=== PATIENT | female | born 1960 | race Caucasian/White ===

== ENCOUNTER 2020-03-20 07:35 | Outpatient (CLI) | payer OTHER, SELFPAY ==
--- NOTE | ~2020-03-20 | CT_ITS ---
EXAMINATION: CT abdomen pelvis w con INDICATION: Diverticulitis of the large intestine without perforation TECHNIQUE: Computed tomographic images of the abdomen and pelvis were obtained after the administrati on of 100 cc of Omnipaque 350 intravenous contrast. The dose-length product (DLP) was 703.78 mGy-cm. Automated exposure control and iterative reconstruction technique were employed. COMPARISON: None available FINDINGS: The lung bases are clear. The heart size is normal. The liver, spleen, pancreas, gallbladde r, and adrenal glands are normal. Cysts of the kidneys measure up to 2.8 cm on the left. No pathologi bri enlarged abdominal or pelvic lymph nodes are identified. There is no free intraperitoneal gas o r evidence of bowel obstruction. The appendix is normal. Colonic diverticulosis is present without ev idence of diverticulitis. IMPRESSION: 1. Mild colonic diverticulosis without evidence of diverticulitis. Reviewed, dictated and finalized at location A.
[2020-03-20 08:29] LABS: Estimated Glomerular Filt Rate > 60
== END 2020-03-20 07:36 | disposition home or self-care (01) ==
LOC: ANHIMG 07:47
PROVIDERS: PCP Family Medicine; Visit Provider Family Medicine
DX: K57.30 Diverticulosis of large intestine without perforation or abscess without bleeding (principal)
CPT/HCPCS: 74177; Q9967

== ENCOUNTER 2020-03-31 11:15 | Outpatient (RCR) | payer OTHER, SELFPAY ==
--- NOTE | 2020-03-06 17:21 | PTOPEVAL ---
PHYSICAL THERAPY EVALUATION AND PLAN OF CARE Thank you for referring Kim Roberts to [facility].? The patient is scheduled to be seen for therapy? 1-2x/week for 4 weeks. Range in frequency due to patient schedule. Please review, sign, date and return this plan of care ZOEY. I agree with and certify that the following plan of care is medically necessary. Referring Physician Date Attending Provider: Sánchez Rowe MD Evaluation Diagnosis bilateral knee OA Subjective Information Kim is here today for Query Text:As Reported By Patient/ bilateral knee OA. She does Family have confirmed severe knee OA. She had an injection to the right knee on 02/20 with good pain relief. She held off on an injection to the left and it continues to hurt. Pain Assessment Timing of Pain Assessment Timing of Pain Assessment Assessment Pain Scale Pain Scale Used Numeric (1 - 10) Self Report Pain Assessment Left Knee(s) Reported Pain Level 6 Pain Description Aching,Pressure Pain Aggravating Factors Stair Climbing,Walking,Weight Bearing/Standing Pain Behaviors None Right Reported Pain Level 2 Pain Description Aching Pain Score Pain Score 2,6: Self Report Lower Extremity Range of Motion Knee Range of Motion Right Knee Flexion Range of Motion - Active 121 Left Knee Flexion Range of Motion - Active 128 Lower Extremity Muscle Strength Testing Hip Strength Bilateral Hip Flexion Strength 4- Good - Hip Extension Strength 3+ Fair + Hip Abduction Strength 3+ Fair + Knee Strength Bilateral Knee Flexion Strength 4 Good Knee Extension Strength 4 Good Knee Strength Comments fair quad contraction of right knee; good quad contraction of left Muscle Length Testing Muscle Length Testing Shreyas Test Shortened Muscles Short (R) Iliopsoas,Short (L) Iliopsoas,Short (R) Rectus Femoris,Short (L) Rectus Femoris Piriformis w/Hip Flexion >90 Degrees (L) Moderate Tightness,(R) Severe Tightness Left Hamstring Length -40 Query Text:(90 - 90 Position) Right Hamstring Length -40 Query Text:(90 - 90 Position) Balance Assessment Time Up Go (TUG) Timed Up and Go Test (TUG) (Seconds) 8 Assistive Devices None 5 Time Sit to Stand Time in Seconds 11.32 PT Clinical Summary Kim is a 59 yo female presenting to outpatient
--- NOTE | 2020-03-20 12:38 | PCPTNOTE ---
Pt No-showed and no-called this date. Continue per POC.
--- NOTE | 2020-03-28 15:56 | PCPTNOTE ---
Patient called & cancelled scheduled appointment this date due to being sick.
--- NOTE | 2020-04-03 09:23 | PCPTNOTE ---
Patient called & cancelled scheduled appointment this date. She rescheduled appointment for 04/09/2020.
--- NOTE | 2020-04-08 11:16 | PCPTNOTE ---
PHYSICAL THERAPY DISCHARGE NOTE Attending Provider: Sánchez Rowe MD Patient:Kim Fermin Work Date of :1960 Kim called to cancel her remaining appointment stating she is not coming back with no other reason provided. She was treated for bilateral knee pain. She will be discharged at this time. Patient?s initial visit was on 03/06/2020 and she had a total of 4 visits. The goals have been partially met. Thank you for referring this patient to [facility]. Please review, sign, date and return this discharge summary ZOEY. I have been updated about the patient's current status and I agree with discharge from the above service at this time. Referring Physician Date
== END 2020-04-09 11:02 | disposition home or self-care (01) ==
LOC: ANHPT 11:15
PROVIDERS: PCP Family Medicine; Visit Provider Orthopaedic Surgery
DX: M17.0 Bilateral primary osteoarthritis of knee (principal)
CPT/HCPCS: 97110; 97140; 97161

== ENCOUNTER → 2020-05-24 10:29 | Outpatient (CLI) | payer OTHER, SELFPAY ==
--- NOTE | ~2020-05-24 | MR_ITS ---
EXAMINATION: MR knee RT wo con DATE: 05/24/2020 11:25 INDICATION: Right knee pain. TECHNIQUE: Magnetic resonance imaging (MRI) of the right knee was performed without intravenous contr ast. Sequences included axial PD-weighted FS FSE, coronal PD-weighted FSE and PD-weighted FS FSE, sag ittal PD-weighted FSE, and sagittal T2-weighted FS FSE. COMPARISON: Right knee radiographs 02/21/2020 FINDINGS: Medial compartment: There is a complex tear of body and posterior horn of medial meniscus. There is deep partial thicknes s cartilage loss of tibial condyle involving the central articular surface with mild subchondral kathleen a-like marrow signal intensity. There is deep partial thickness cartilage loss of femoral condyle inv olving the central, medial, and posterior articular surface. Marginal osteophytes are noted. Lateral compartment: Lateral meniscus is normal. There is cartilage surface irregularity of tibial condyle and femoral con dyle. Patellofemoral compartment: There is deep partial thickness cartilage loss of patellar lateral facet with moderate subchondral ed mohit-like marrow signal intensity. There is shallow partial-thickness cartilage loss of patellar media l facet. There is partial-thickness cartilage loss of medial trochlea. Ligaments and tendons: The anterior and posterior cruciate ligaments are normal. Medial collateral ligament and lateral ari ateral ligament complex are normal. The patellar tendon is normal. Fluid: There is a moderate-sized knee joint effusion. There is a moderate-sized Caruso's cyst. IMPRESSION: 1. Moderate chondrosis of medial and patellofemoral compartments and mild chondrosis of lateral ky rtment. 2. Tear of medial meniscus. 3. Moderate-sized knee joint effusion. 4. Moderate-sized Caruso's cyst. Reviewed, dictated and finalized at location A. [employer] IMPRESSION: 1. Moderate chondrosis of medial and patellofemoral compartments and mild chond rosis of lateral compartment. 2. Tear of medial meniscus. 3. Moderate-sized knee joint effusion. 4. Moderate-sized Caruso's cyst.
== END ==
PROVIDERS: PCP Family Medicine; Visit Provider Orthopaedic Surgery
DX: M71.21 Synovial cyst of popliteal space [Baker], right knee (principal); M25.461 Effusion, right knee; S83.241A Other tear of medial meniscus, current injury, right knee, initial encounter; X58.XXXA Exposure to other specified factors, initial encounter
CPT/HCPCS: 73721

== ENCOUNTER 2020-06-16 08:51 | Emergency (ER) | payer OTHER, SELFPAY ==
[2020-06-16] VITALS (15 sets, daily range): BP systolic 120–143; BP diastolic 77–88; PULSE 78–100; RESP 15–20; TEMP 36.8; O2SAT 97–100
--- NOTE | ~2020-06-16 | CT_ITS ---
EXAMINATION: CTA chest PE protocol EXAM DATE: 06/16/2020 11:14 INDICATION: Mid chest pain. TECHNIQUE: Spiral CTA of the chest (pulmonary arteries) was performed with 100 cc Omnipaque 350 intr avenous contrast injection. Images were acquired during the pulmonary arterial phase. Coronal maxi mum intensity projection 3D-reconstructions were created by the technologist on dedicated workstation . Axial, coronal and sagittal reformatted images were reviewed. The dose-length product (DLP) for t his examination was 559.08 mGy-cm. The exposure was tailored according to patient size (auto mA exp osure control), and iterative reconstruction (ASIR) was used as additional dose reduction technique. There is no prior study for comparison. FINDINGS: Pulmonary arteries are well opacified and without intraluminal filling defects. No thora cic aortic dissection. Bilateral patchy peripheral faint groundglass opacities Appearance is typical of early stage COVID 19 pneumonia. Less likely acute possibilities include influenza, pulmonary sheri ma or hemorrhage. Some chronic processes that can have this appearance include cryptogenic organizing pneumonia, desquamative interstitial pneumonia, nonspecific interstitial pneumonia, drug toxicity, c onnective tissue disease. Please clinically correlate and test as appropriate. There are no pleural or pericardial effusions. Tracheobronchial tree is patent. There is no media stinal, hilar or axillary lymphadenopathy. There is no pneumothorax. Heart normal in size. No e vidence of coronary arterial calcification. Partially imaged left renal lesion statistically most li chanell cyst. Possible poorly calcified cholelithiasis. Gallbladder otherwise unremarkable. There is hep atic steatosis. There is thoracic spondylosis without osteoblastic or osteolytic lesions identified. IMPRESSION: 1. Faint bilateral peripheral airspace disease suspicious for COVID-19 pneumonia. 2. No pulmonary emboli suspected. 3. Hepatic steatosis. 4. Possible cholelithiasis. Reviewed, dictated and finalized at location A. MOTIVE OBSERVER IMPRESSION: 1. Faint bilateral peripheral airspace disease suspicious for COVID-19 pneumon ia. 2. No pulmonary emboli suspected. 3. Hepatic steatosis. 4. Possible cholelithiasis.
--- NOTE | ~2020-06-16 | XR_ITS ---
EXAMINATION: XR chest 2V EXAM DATE: 06/16/2020 09:27 INDICATION: Chest Pain, left side sharp pain, h/o hypertension. TECHNIQUE: Frontal and lateral projections of the chest obtained and reviewed. There is no prior joanna dy for comparison. FINDINGS: The lungs are clear. There are no pleural effusions. The cardiomediastinal silhouette is within normal limits. There is no pneumothorax suspected. Mild to moderate thoracolumbar scoliosis. IMPRESSION: No acute cardiopulmonary findings. Reviewed, dictated and finalized at location A. RAFT SYSTEMS REPAIRER
--- NOTE | 2020-06-16 08:59 | ECG_ITS ---
Measurements Intervals [place] Rate: 100 P: 43 ND: 139 QRS: 3 QRSD: 92 T: 48 QT: 352 QTc: 455 Interpretive Statements SINUS TACHYCARDIA VOLTAGE CRITERIA FOR LVH BASELINE ARTIFACT- I, II, III, AVR, AVL, AVF, V3-V6 BORDERLINE ECG Electronically Signed On 06-16-2020 9:10:36 TAIL WORKER by Dhaval Jha D.O.
[2020-06-16 09:20] LABS: Basophils Absolute Auto 0.1 K/mm3 (0.0-0.1); Basophils Percent Auto 0.7 % (0.2-1.2); Eosinophils Absolute Auto 0.1 K/mm3 (0-0.3); Eosinophils Percent Auto 0.5 % (0-4.4); Hematocrit 40.1 % (37.0-47.0); Hemoglobin 13.1 g/dL (12.0-15.0); Immature Granulocyte Absolute 0.03 K/mm3 (0.00-0.031); Immature Granulocyte Percent A 0.3 % (0-0.5); Lymphocytes Absolute Auto 3.45 K/mm3 (0.9-3.2); Lymphocytes Percent Auto 33.5 % (18.3-44.2); Mean Corpuscular HGB Conc 32.7 g/dl (32-36); Mean Corpuscular Hemoglobin 31.1 pg (26-34); Mean Corpuscular Volume 95.2 fl (80-100); Mean Platelet Volume 10.6 fl (7.4-10.4); Monocytes Absolute Auto 0.8 K/mm3 (0.1-0.6); Monocytes Percent Auto 7.7 % (2.6-8.5); Neutrophils Absolute Auto 5.9 K/mm3 (1.3-6.7); Neutrophils Percent Auto 57.3 % (45.5-73.1); Platelet Count Result 293 k/mm3 (150-375); Red Blood Count 4.21 M/mm3 (4.2-5.4); Red Cell Distribution Width 12.3 % (11.5-14.5); White Blood Count 10.3 K/mm3 (4.5-10.0)
[2020-06-16 09:27] LABS: INR 0.8
[2020-06-16 09:28] LABS: Partial Thromboplastin Time 22.1 SECONDS (22.3-36.8)
[2020-06-16 09:29] LABS: Anion Gap 9 mmol/L (8-16); Blood Urea Nitrogen 14 mg/dL (7-17); Calcium 9.8 mg/dL (8.4-10.2); Carbon Dioxide 27 mmol/L (22-30); Chloride 103 mmol/L (98-107); Estimated CRCL calculation 86 ml/min; Estimated Glomerular Filt Rate > 60; Glucose 110 mg/dL (65-105); Potassium 3.8 mmol/L (3.4-5.0); Sodium 139 mmol/L (137-145)
[2020-06-16 09:41] LABS: Troponin I < 0.012 ng/mL (0.000-0.034)
[2020-06-16 09:57] LABS: D Dimer 0.76 ug/mL (<0.48)
--- NOTE | 2020-06-16 10:04 | ED.GENADULT ---
HPI - General Adult General Chief complaint: Chest Pain Stated complaint: CP Time Seen by Provider: 06/16/20 09:12 Source: patient Mode of arrival: ambulatory Limitations: no limitations History of Present Illness HPI narrative: Patient is a 60-year-old female who presents with left substernal chest pain that began at 5 AM waking her from her sleep described as an intermittent stabbing pain which resolves last seconds patient was recently at the beginning in May diagnosed with COVID-19 notes that she has been released by the health department but continues to have cough and some slight shortness of breath. Patient denies fever vomiting diarrhea. Patient notes that the pain was radiating to the shoulder but otherwise currently is not on arrival is in the room not uncomfortable. Patient took an aspirin prior to arriving 325 mg. Related Data Home Medications Medication Instructions Recorded Confirmed cholecalciferol (vitamin D3) 1,000 unit PO ml 07/05/19 05/22/20 raloxifene 60 mg tablet 60 mg PO DAILY 07/05/19 05/22/20 amlodipine 2.5 mg tablet 2.5 mg PO DAILY 02/21/20 05/22/20 metoprolol tartrate 25 mg tablet 25 mg PO DAILY 02/21/20 05/22/20 Allergies Allergy/AdvReac Type Severity Reaction Status Date / Time povidone Allergy Mild ITCHING Verified 06/16/20 09:19 triamcinolone [From Kenalog] AdvReac Mild high blood Verified 06/16/20 09:19 pressure Review of Systems Review of Systems: All systems reviewed & are unremarkable except as noted in HPI and below PMFSH Past Medical History Medical History Hypertension Steroid injections previously given in the knee caused pt to have a spike in blood pressure 170/102 Surgical History Surgical History History of oophorectomy Hx of tubal ligation Patella fracture ORIF in 2004; hardware removal 2005 Social History Social History Smoking status: Former smoker Additional smoking assessment comments: smoke 1/2 pack aday for 4 years Alcohol intake: current Exam Narrative: Exam Narrative: GENERAL: Well-appearing, obese, and in no acute distress. HEAD: Normocephalic, atraumatic. EYES: PERRLA and EOMI. ENT: Nares clear, no rhinorrhea or epistaxis. Mucous membranes moist. NECK: Supple. No adenopathy or masses. No carotid bruits or JVD CHEST: Clear to auscultation. No respiratory distress. No wheezes rales or rhonchi. Reproducible left chest wall tenderness along the sternal border. HEART: Regular rate and rhythm. No murmur heard. Normal peripheral pulses. ABDOMEN: Soft, nontender, nondistended EXTREMITIES: Normal range of motion. No edema. SKIN: Warm, dry, no rash. NEURO: No focal deficits. Alert and oriented x3. PSYCH: Normal mood and affect. Course Course Emergency Course: Patient evaluated in the emergency department felt to be appropriate for discharge home agreeing to follow-up as directed with cardiology is aware of recommendations and discussion with cardiology patient without high risk changes in her EKG blood work or imaging patient will be discharged home with planned visit with primary and cardiology in the near future Consultations Consultation #1: Discussed case with cardiology who agrees the patient can follow in clinic for further evaluation Date: 06/16/20 Time: 13:58 Vital Signs Vital signs: Vital Signs Temperature 98.2 F 06/16/20 09:12 Pulse Rate 100 06/16/20 09:12 Respiratory Rate 18 06/16/20 09:12 Blood Pressure 143/88 H 06/16/20 09:12 Pulse Oximetry 100 06/16/20 09:12 Temperature 98.2 F 06/16/20 09:12 Pulse Rate 83 06/16/20 13:06 Respiratory Rate 15 06/16/20 13:06 Blood Pressure 120/77 06/16/20 12:31 Pulse Oximetry 99 06/16/20 13:06 Medical Decision Making MDM Narrative Medical decision making narrative: Patients EKGs and la
[2020-06-16 12:49] LABS: Troponin I < 0.012 ng/mL (0.000-0.034)
--- NOTE | 2020-06-16 12:58 | ECG_ITS ---
Measurements Intervals [place] Rate: 77 P: 24 LA: 146 QRS: -2 QRSD: 90 T: 30 QT: 374 QTc: 425 Interpretive Statements SINUS RHYTHM VOLTAGE CRITERIA FOR LVH BORDERLINE ECG Electronically Signed On 06-16-2020 13:44:12 SHEET ROCKER by Dhaval Jha D.O.
== END 2020-06-16 14:04 | disposition home or self-care (01) ==
PROVIDERS: Emergency Medicine Emergency Medical Services; Emergency Provider Emergency Medicine; PCP Family Medicine
DX: R07.2 Precordial pain (principal); I10 Essential (primary) hypertension; Z87.891 Personal history of nicotine dependence; K76.0 Fatty (change of) liver, not elsewhere classified; R91.8 Other nonspecific abnormal finding of lung field; Z86.19 Personal history of other infectious and parasitic diseases; R00.0 Tachycardia, unspecified; R94.31 Abnormal electrocardiogram [ECG] [EKG]
CPT/HCPCS: 36415; 71046; 71275; 80048; 84484; 85025; 85380; 85610; 85730; 93005; 96374; 99284; J0131; Q9967

== ENCOUNTER → 2020-06-27 10:05 | Outpatient (CLI) | payer OTHER, SELFPAY ==
--- NOTE | ~2020-06-27 | MM_ITS ---
EXAMINATION: MM screening aby BI w silvia HISTORY: Screening TECHNIQUE: Craniocaudal and mediolateral oblique 3-D tomosynthesis images were obtained and synthetic 2-D images were generated. CAD analysis was submitted and interpreted. COMPARISON: Comparison to multiple prior studies sequentially, with oldest reviewed study dated 11/30. BREAST PARENCHYMAL COMPOSITION: There are scattered areas of fibroglandular density. FINDINGS: Stable benign left breast calcifications. There is no evidence of suspicious mass, calcific ation, or architectural distortion to suggest malignancy in either breast. There has been no suspicio us interval change. IMPRESSION: 1. No mammographic evidence of malignancy. 2. Recommend routine screening mammography in one year. BI-RADS Category 1: Negative Reviewed, dictated and finalized at location A. E PLANER OPERATOR
== END ==
PROVIDERS: PCP Family Medicine; Visit Provider Obstetrics & Gynecology Gynecology
DX: Z12.31 Encounter for screening mammogram for malignant neoplasm of breast (principal)
CPT/HCPCS: 77063; 77067

== ENCOUNTER → 2021-06-16 11:13 | Outpatient (CLI) | payer OTHER, SELFPAY ==
--- NOTE | ~2021-06-16 | DEXA_ITS ---
Bone Density Report Name: JO ANN SUAZO Age: 61 Sex: Female Ethnicity: White Date of : 1960 Indication: osteopenia; height loss; prior fracture; postmenopausal Referring Provider: ELLEN BUTLER Study: Bone densitometry was performed. Exam Date: June 16, 2021 Accession number: [id number] Bone Density: Region BMD T-score Z-score Classification AP Spine (L1-L4) 0.885 -1.5 -0.1 Osteopenia Femoral Neck (Left) 0.704 -1.3 -0.1 Osteopenia Total Hip (Left) 0.798 -1.2 -0.3 Osteopenia Femoral Neck (Right) 0.724 -1.1 0.1 Osteopenia Total Hip (Right) 0.780 -1.3 -0.4 Osteopenia Total Hip Mean 0.789 -1.3 -0.4 Osteopenia World Health Organization criteria for BMD impression classify patients as: Normal (T-score at or above -1.0), Osteopenia (T-score between -1.0 and -2.5), or Osteoporosis (T-score at or below -2.5). 10-year Fracture Risk(1): Major Osteoporotic Fracture 12% Hip Fracture 0.8% Reported Risk Factors: [place] (), Neck BMD=0.704, BMI=35.0, previous fracture (1) FRAX(R) Version 3.08. Fracture probability calculated for an untreated patient. Fracture probability may be lower if the patient has received treatment. Previous Exams: Region Exam Age BMD T-score BMD Change BMD Change Date g/cm2 vs Baseline vs Previous AP Spine(L1-L4) 06/16/2021 61 0.885 -1.5 0.024* 0.023* 12/08/2018 58 0.862 -1.7 0.000 0.000 06/22/2016 56 0.861 -1.7 Total Hip(Left) 06/16/2021 61 0.798 -1.2 -0.001 -0.008 12/08/2018 58 0.806 -1.1 0.006 0.006 06/22/2016 56 0.799 -1.2 Total Hip(Right) 06/16/2021 61 0.780 -1.3 -0.008 -0.021 12/08/2018 58 0.801 -1.2 0.013 0.013 06/22/2016 56 0.788 -1.3 *Denotes significance at 95% confidence level, LSC for AP Spine = 0.022 g/cm2, LSC for Total Hip = 0.027 g/cm2 Clinical Information Provided by Patient: Has had a low trauma fracture Has used the following medications: Evista (i.e. raloxifene), Vitamin D Patient maximum height was 62.5 Menopause Age: 52 No regular weight bearing exercise Drinks caffeinated beverages Onset of menses at age 15 Number of children 2 Impression: The patient has low bone mass, based on the Total Spine T-score. The patient has an estimated ten-year risk of hip fracture of 0.8% and an estimated ten-year risk of major fracture of 12%
== END ==
PROVIDERS: PCP Family Medicine; Visit Provider Obstetrics & Gynecology Gynecology
DX: Z78.0 Asymptomatic menopausal state (principal); M85.88 Other specified disorders of bone density and structure, other site; M85.852 Other specified disorders of bone density and structure, left thigh; M85.851 Other specified disorders of bone density and structure, right thigh
CPT/HCPCS: 77080

== ENCOUNTER → 2022-08-16 13:48 | Outpatient (CLI) | payer OTHER, SELFPAY ==
--- NOTE | ~2022-08-16 | CT_ITS ---
EXAMINATION: CT brain wo con DATE: 08/16/2022 14:07 INDICATION: Hypertensive urgency. Right eye floaters. TECHNIQUE: Computed tomography (CT) of the head was performed without intravenous contrast. The mA wa s adjusted according to patient size. Iterative reconstruction technique was employed. The dose-lengt h product was 599.57 mGy-cm. COMPARISON: None FINDINGS: There are scattered areas of low attenuation in the cerebral white matter. There is no intr acranial hemorrhage, acute infarction, or abnormal intracranial mass lesion. The ventricles are tanner l in size. The orbits are normal. The mastoid air cells are normal. The paranasal sinuses are clear. IMPRESSION: 1. Mild nonspecific cerebral white matter disease, which likely represents chronic small vessel ische arabella disease. Reviewed, dictated and finalized at location A. TANNER IMPRESSION: 1. Mild nonspecific cerebral white matter disease, which likely represents shrimping boat captain mike small vessel ischemic disease.
== END ==
PROVIDERS: PCP Nurse Practitioner Adult Health; Visit Provider Nurse Practitioner Adult Health
DX: H43.392 Other vitreous opacities, left eye (principal); R93.0 Abnormal findings on diagnostic imaging of skull and head, not elsewhere classified
CPT/HCPCS: 70450

== ENCOUNTER → 2022-12-15 13:24 | Outpatient (CLI) | payer OTHER, SELFPAY ==
--- NOTE | ~2022-12-15 | MM_ITS ---
EXAMINATION: MM screening aby BI w silvia HISTORY: Screening mammogram TECHNIQUE: Craniocaudal and mediolateral oblique 3-D tomosynthesis images were obtained and synthetic 2-D images were generated. CAD analysis was submitted and interpreted. COMPARISON: 06/27/2020, 12/04/2018, 09/29/2017 bilateral screening mammogram examinations BREAST PARENCHYMAL COMPOSITION: There are scattered areas of fibroglandular density. FINDINGS: Occasional benign calcifications of each breast. There is no evidence of suspicious mass, c alcification, or architectural distortion to suggest malignancy in either breast. There has been no s uspicious interval change. IMPRESSION: 1. No mammographic evidence of malignancy. 2. Recommend routine screening mammography in one year. BI-RADS Category 2: Benign finding(s). Reviewed, dictated and finalized at location A.
== END ==
PROVIDERS: PCP Family Medicine; Visit Provider Obstetrics & Gynecology Gynecology
DX: Z12.31 Encounter for screening mammogram for malignant neoplasm of breast (principal)
CPT/HCPCS: 77063; 77067

== ENCOUNTER 2023-07-25 10:12 | Outpatient (CLI) | payer OTHER, SELFPAY ==
--- NOTE | ~2023-07-25 | DEXA_ITS ---
Bone Density Report Name: JO ANN SUAZO Age: 63 Sex: Female Ethnicity: White Date of : 1960 Indication: osteopenia; monitoring treatment; height loss; prior fracture; postmenopausal Referring Provider: ELLEN BUTLER Study: Bone densitometry was performed. Exam Date: July 25, 2023 Accession number: [id number] Bone Density: Region BMD T-score Z-score Classification AP Spine (L1-L4) 0.853 -1.8 -0.3 Osteopenia Femoral Neck (Left) 0.675 -1.6 -0.2 Osteopenia Total Hip (Left) 0.788 -1.3 -0.2 Osteopenia Femoral Neck (Right) 0.676 -1.6 -0.2 Osteopenia Total Hip (Right) 0.795 -1.2 -0.2 Osteopenia Total Hip Mean 0.792 -1.3 -0.2 Osteopenia World Health Organization criteria for BMD impression classify patients as: Normal (T-score at or above -1.0), Osteopenia (T-score between -1.0 and -2.5), or Osteoporosis (T-score at or below -2.5). 10-year Fracture Risk: FRAX not reported because: Treated for osteoporosis Previous Exams: Region Exam Age BMD T-score BMD Change BMD Change Date g/cm2 vs Baseline vs Previous AP Spine(L1-L4) 07/25/2023 63 0.853 -1.8 -0.009 -0.032 06/16/2021 61 0.885 -1.5 0.024* 0.023* 12/08/2018 58 0.862 -1.7 0.000 0.000 06/22/2016 56 0.861 -1.7 Total Hip(Left) 07/25/2023 63 0.788 -1.3 -0.012 -0.011 06/16/2021 61 0.798 -1.2 -0.001 -0.008 12/08/2018 58 0.806 -1.1 0.006 0.006 06/22/2016 56 0.799 -1.2 Total Hip(Right) 07/25/2023 63 0.795 -1.2 0.007 0.015 06/16/2021 61 0.780 -1.3 -0.008 -0.021 12/08/2018 58 0.801 -1.2 0.013 0.013 06/22/2016 56 0.788 -1.3 *Denotes significance at 95% confidence level, LSC for AP Spine = 0.022 g/cm2, LSC for Total Hip = 0.027 g/cm2 Clinical Information Provided by Patient: Has had a low trauma fracture Is being treated for osteoporosis Has used the following medications: Actonel (i.e. risedronate), Vitamin D Patient maximum height was 62.5 Menopause Age: 52 Drinks caffeinated beverages Onset of menses at age 16 Number of children 2 Impression: The patient has low bone mass, based on the Total Spine T-score. The patient has risk factors, including: previous fracture. No significant bone loss was observed. Discussion: PATIENT UNDER TREATMENT WITH NO SIGNIFICANT BMD LOSS SINCE
== END 2023-07-25 10:13 ==
PROVIDERS: PCP Obstetrics & Gynecology Gynecology; Visit Provider Obstetrics & Gynecology Gynecology
DX: Z78.0 Asymptomatic menopausal state (principal); M85.89 Other specified disorders of bone density and structure, multiple sites
CPT/HCPCS: 77080

== ENCOUNTER 2024-04-24 07:32 | Outpatient (CLI) | payer OTHER, SELFPAY ==
--- NOTE | ~2024-04-24 | MM_ITS ---
EXAMINATION: MM screening [facility] BI w silvia HISTORY: Screening TECHNIQUE: Craniocaudal and mediolateral oblique 3-D tomosynthesis images were obtained and synthetic 2-D images were generated. CAD analysis was submitted and interpreted. COMPARISON: Comparison to multiple prior studies sequentially, with oldest reviewed study dated 12/2015. BREAST PARENCHYMAL COMPOSITION: Not Dense. The breasts are almost entirely fatty. FINDINGS: There is no evidence of suspicious mass, calcification, or architectural distortion to sugg est malignancy in either breast. There has been no suspicious interval change. IMPRESSION: 1. No mammographic evidence of malignancy. 2. Recommend routine screening mammography in one year. BI-RADS Category 1: Negative Reviewed, dictated and finalized at location B.
== END 2024-04-24 07:33 | disposition home or self-care (01) ==
LOC: MICIMG 07:33
PROVIDERS: PCP Family Medicine; Visit Provider Obstetrics & Gynecology Gynecology
DX: Z12.31 Encounter for screening mammogram for malignant neoplasm of breast (principal)
CPT/HCPCS: 77063; 77067

== ENCOUNTER 2024-10-13 07:23 | Outpatient (CLI) | payer OTHER, SELFPAY ==
--- NOTE | ~2024-10-13 | US_ITS ---
EXAM: ABDOMEN ULTRASOUND HISTORY: R10.11 - Right upper quadrant pain COMPARISON: None FINDINGS: LIVER: The liver is increased in echogenicity and unremarkable in size. The portal vein is patent, demonstrating hepatopedal (but phasic) flow. The contour of the liver surface is smooth. GALLBLADDER: No stones are identified within the gallbladder, which is otherwise unremarkable. No gallbladder wall thickening or pericholecystic fluid. BILE DUCTS: Common bile duct measures 3mm. PANCREAS: Limited evaluation of the pancreas secondary to overlying bowel gas IMPRESSION: Fatty infiltration of the liver. Examination is otherwise unremarkable. Reviewed, dictated and finalized at location A.
== END 2024-10-13 07:24 | disposition home or self-care (01) ==
LOC: MICIMG 07:23
PROVIDERS: PCP Family Medicine; Visit Provider Family Medicine
DX: R10.11 Right upper quadrant pain (principal); K76.0 Fatty (change of) liver, not elsewhere classified
CPT/HCPCS: 76705

== ENCOUNTER 2024-12-03 01:52 | Day surgery (SDC) | payer OTHER, SELFPAY ==
[2024-11-21 12:55] VITALS: BMI 35.4
--- OUTSIDE RECORDS SUMMARY | 2024-12-03 01:56 | XMS_ITS | Referral Summary ---
Author Organization [facility] Address [address] [place] [address] Care Team Providers Care Risk Management Analyst Name Role Phone Teri Haider MD Primary Care Provider [phone] Allergies Active Allergy Reactions Criticality Noted Date Comments Cortisone Other (See comments) Low 03/14/2024 INJECTIONS, ELEVATE BP Medications amLODIPine (NORVASC) 5 mg tablet 03/14/2024 Active metoprolol XL (TOPROL-XL) 25 mg extended release tablet 03/14/2024 Acti ve risedronate (ATELVIA) 35 mg tablet,delayed release (DR/EC) TAKE 1 TABLET BY MOUTH ONCE WEEKLY 12/27/2023 Active polyethylene glycol (MIRALAX) 17 gram/dose bulk powder Use entire bottle of 255 grams of miralax for Colon prep as directed by office. 09/20/2017 Active calcium carbonate-vitam in D3 1,500 mg (600 mg elemental)-1,00 0 unit capsule Take by mouth A ctive Active Problems Problem Noted Date Diagnosed Date Fracture, Colles, left, closed 03/14/2024 Acute pain of left wrist 03/14/2024 Social History Tobacco Use Types Packs/Day Years Used Date Smoking Tobacco: Former Cigarettes Q uit: 2010 Smokeless Tobacco: Never Personal Safety Answer Date Recorded Getting School Help Needed Not on file 03/09 Comments Unknown Sex and Gender Information Value Date Recorded Sex Assigned at Not on file Legal Sex Female 10:15 AM CDT Gender Identity Female 03/09/2024 10:17 AM CDT Sexual Orientation Not on file Plan of Treatment Not on file Insurance [employer] [address] [place] [id number] Care Teams Risk Management Analyst Relationship Specialty Start Date End Date Teri Haider MD [address] [place] [address] PCP - General Family Medicine 03/12/24
--- OUTSIDE RECORDS SUMMARY | 2024-12-03 01:56 | XMS_ITS | Clinical Summary ---
Author Organization [facility] Address [address] [place] [address] Care Team Providers Care Women'S Activities Adviser Name Role Phone Umair Hobbs MD Primary Care Provider [phone] Allergies No known active allergies Social History Tobacco Use Types Packs/Day Years Used Date Smoking Tobacco: Never Smokeless Tobacco: Never Alcohol Use Standard Drinks/Week Comments Yes 0 (1 standard drink = 0.6 oz pur e alcohol) weekly AUDIT-C Answer Date Recorded Frequency of Alcohol Consumption Never 07/11/2019 Average Number of Drinks Not on file 019 Frequency of Binge Drinking Not on file 06/18 Comments No Sex and Gender Information Value Date Recorded Sex Assigned at Not on file Legal Sex Female 6:23 PM CDT Gender Identity Not on file Sexual Orientation Not on file Last Filed Vital Signs Vital Sign Reading Time Taken Comments Blood Pressure 160/97 07/11/2019 12:00 PM DRYWALL MECHANIC Pulse 78 07/11/2019 12:00 PM DRYWALL MECHANIC Temperature 36.5 C (97.7 F) 07/11/2019 10:43 AM DRYWALL MECHANIC Respiratory Rate 15 07/11/2019 12:00 PM DRYWALL MECHANIC Oxygen Saturation 97% 07/11/2019 12:00 PM DRYWALL MECHANIC Inhaled Oxygen Concentration - - Weight 83.2 kg (183 lb 6.8 oz) 07/11/2019 10:43 AM DRYWALL MECHANIC Height 157.5 cm (5' 2 ) 07/11/2019 10:43 AM DRYWALL MECHANIC Body Mass Index 33.55 07/11/2019 10:43 AM DRYWALL MECHANIC Plan of Treatment Health Maintenance Due Date Last Done Comments Cervical Cancer Screening Pa p Smear (Age 30 to 64) Every 3 Years 1962 Colorectal Cancer Screening Colonoscopy (10 Years) 1962 Annual Physical 1965 Hepatitis C 1980 DTaP, Tdap and Td Vaccines ( 1 - Tdap) 1981 Cervical Cancer Screening Pa p with HPV Testing (Age 30 to 64) Every 5 Years 1992 Cervical Cancer Screening with HPV 1992 Mammogram Screening 2002 Pneumococcal Vaccine: 50+ Ye ars (1 of 1 - PCV) 2012 Zoster Vaccines (1 of 2) 2012 COVID-19 Vaccine (1 - 2023-2 5 season) 2024 RSV Immunization or 60+ Years (1 - 1-dose 75+ series) 2037 Meningococcal B Vaccine Aged Out No l onger eligible based on patient's age to complete this topic Meningococcal Vaccine Aged Out No rupinder stacy eligible based on patient's age to complete this topic RSV Immunizations Under 20 Months Aged Out No longer eligible based on patient's age to complete this topic Insurance Care Teams Women'S Activities Adviser Relationship Specialty Start Date End Date Umair Hobbs MD [address] [place] [address] PCP - General FAMILY PRACTICE 07/11/19
--- OUTSIDE RECORDS SUMMARY | 2024-12-03 01:56 | XMS_ITS | Clinical Summary ---
Author Organization [facility] Address [address] [place] [address] Care Team Providers Care Stock Transfer Clerk Name Role Phone Teri Haider MD Primary Care Provider [phone] Allergies Active Allergy Reactions Criticality Noted Date [...] 03/14/2024 Acute pain of left wrist 03/14/2024 Surgical History Surgery Date Site/Laterality Comments KNEE SURGERY Medical History Medical History Date Comments Hypertension Osteoarthritis Osteoporosis Family History Medical History Relation Name Comments Heart disease Father Arthritis Mother Cancer Mother Heart disease Mother Relation Name Status Comments Father Mother Social History Tobacco Use Types Packs/Day Years [...] AM CDT Sexual Orientation Not on file Obstetrics History Plan of Treatment Health Maintenance Due Date Last Done Comments Breast Cancer Screening-Mammogram 1962 Cervical Cancer Screening 1962 Colon Cancer Screening-Colonoscopy 1962 Depression Screening 1962 Hepatitis C Screening 1962 DTaP/Tdap/Td Vaccine (1 - Tdap) 1973 Hepatitis B Screening 1980 Regular Well Visit/Exam 18-64 1980 Zoster Vaccine (1 of 2) 2012 Influenza Vaccine (#1) 2024 , 06/17/2019, 05/31/2018 Pneumococcal vaccine <65 Aged Out No longer eligible based on patient's age to complete this topic Insurance [employer] [address] Care Teams Stock Transfer Clerk Relationship Specialty Start Date End Date Teri Haider MD [address] [place] [address] PCP - General Family Medicine 03/12/24
--- OUTSIDE RECORDS SUMMARY | 2024-12-03 01:56 | XMS_ITS | Clinical Summary ---
Author Organization [facility] Address [address], [address] [address] Phone Care Team Providers Care Medical Policy Specialist Name Role Phone Bright Hong MD Primary Care Provider + Maggie Zuniga MD Unavailable [phone] Rena Larson APRN, ROOM SERVICE WAITER/WAITRESS Unavailable Kumar Deluna DO Unavailable [phone] Medications polyethylene glycol (MIRALAX) Powder Use entire bottle of 255 grams of miralax for Colon prep as directed by office. 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 Gender Identity Not on file Sexual Orientation Not on file Plan of Treatment Health Maintenance Due Date Last Done Comments Hepatitis C Virus (HCV) Screening 1962 TdaP Immunization 1962 Pap Smear 1983 Cervical Cancer Screening (CCS) 1992 HPV/Cotest 1992 Cologuard 2012 Immunochemical Fecal Occult Blood 2012 Mammogram 2012 Pneumococcal Immunization (5 0+ years) (1 of 1 - PCV) 2012 Zoster Immunization (1 of 2) 2012 Influenza Immunization (#1) 2024 SARS-COV-2 Immunization ( season) 2024 Colonoscopy 12/06/2027 12/05/2017 Colorectal Cancer Screening 12/06/2027 Respiratory Syncytial Virus (RSV) Immunization (Adult) (1 - 1-dose 75+ series) 2037 12/05/2017 Hepatitis B Immunization Aged Out No longer eligible based on patient's age to complete this topic Meningococcal Immunization (ACWY) Aged Out No longer eligible based on patient's age to complete this topic Pneumococcal Immunization Combined Aged Out No longer eligible based on patient's age to complete this topic Rotavirus Immunization Aged Out No lo nger eligible based on patient's age to complete this topic Procedures Procedure Name Priority Date/Time Associated Diagnosis Comments COLONOSCOPY Routine 12/05/2017 from Last 3 Months or Most Recently Relevant to Health Maintenance Results * HM COLONOSCOPY (12/05/2017) Kumar Deluna DO PROCEDURE/MINOR SURGICAL ORDERA BLES Final Result from Last 3 Months or Most Recently Relevant to Health Maintenance Care Teams Medical Policy Specialist Relationship Specialty Start Date End Date Bright Hong MD [address] [place] [address] PCP - General Family Medicine 06/27/17 Maggie Zuniga MD [address] [place] [address] Obstetrics & Gynecology 06/27/17 Rena Larson APRN, ROOM SERVICE WAITER/WAITRESS [address] [place], [place] [id number] Nurse Practitioner Advanced Practice Nurse 12/05/17 Kumar Deluna DO [address] [place] [address] Consulting Physician Gastroenterology 12/05/17
[2024-12-03 07:08] VITALS: BP 147/87; PULSE 118; RESP 18; TEMP 36.2; O2SAT 97
[2024-12-03] MEDS: LACTATED RINGERS 1,000 ML 150 ML IV CONT (07:16)
--- NOTE | 2024-12-03 08:12 | PM.HPGS ---
History of Present Illness History of Present Illness Consent: Risks, benefits, and alternatives have been discussed and questions answered. Patient agrees to proceed with procedure. Chief complaint: Screening Narrative: Kim Roberts is a 64 year old female with colon polyp 7 years ago Review of Systems Review of Systems: All systems reviewed & are unremarkable except as noted in HPI and below PMFSH Past Medical History Medical History (Updated 12/03/24 @ 08:14 by Sammy Ward MD) Colon polyp Broken wrist (~02/16/24) Osteoporosis Osteoarthritis of right knee Hypertension Steroid injections previously given in the knee caused pt to have a spike in blood pressure 170/102 Surgical History Surgical History H/O knee surgery LEFT Patella fracture ORIF in 2004; hardware removal 2005 Hx of tubal ligation History of oophorectomy Left Family History Family History Father Hypertension Heart disease Mother Liver cancer Hypertension Cerebrovascular accident Heart disease Sibling Lung cancer Diabetes mellitus Hypertension Social History Social History Smoking status: Former smoker Additional smoking assessment comments: smoke 1/2 pack aday for 4 years Alcohol intake: current Drinks per week: 1 Alcohol use details: occasional Substance use: never Substance use type: does not use Do You Feel Safe in your Home?: Yes Lack of Transportation: No Lack of Food: Never True Current Housing: I Have Housing Concerned About Future Housing: No Difficulty Paying Gas/Electric Bills: No Difficulty Paying for Meds: No Currently Unemployed: No Difficulty w/ Childcare or Family Care: No Living arrangements: with family Gender identity (if verbalized by the patient): Female Spiritual care concerns: No Agree to blood products: Yes Meds Home Medications and Allergies Home Medications Medication Instructions Recorded Confirmed Type cholecalciferol (vitamin D3) 25 1,000 unit PO DAILY 07/05/19 12/03/24 History mcg/drop (1,000 unit/drop) oral drops aspirin 81 mg tablet,delayed 81 mg PO DAILY 08/31/23 12/03/24 History release (Adult Aspirin Regimen) amlodipine 5 mg tablet 5 mg PO DAILY #90 tabs 06/17/24 12/03/24 Rx metoprolol succinate 25 mg 25 mg PO DAILY #90 tabs 06/17/24 12/03/24 Rx tablet,extended release 24 hr pantoprazole 40 mg tablet,delayed 40 mg PO QAM #30 tabs 10/08/24 12/03/24 Rx release Allergies Allergy/AdvReac Type Severity Reaction Status Date / Time povidone Allergy Mild ITCHING Verified 12/03/24 07:07 triamcinolone (From Kenalog) AdvReac Mild high blood Verified 12/03/24 07:07 pressure Vital Signs Vital Signs - 24 hr 12/03/24 07:08 Temperature 97.1 F L Pulse Rate 118 H Respiratory Rate 18 Blood Pressure 147/87 H Pulse Oximetry 97 Oxygen Delivery Room Air Exam Const: General: comfortable and no acute distress HENMT: Face/Nose/Sinus: Normal nares present Eyes: General: appearance normal, both eyes and all related structures Neck: Neck: no JVD Resp: Auscultation: clear to auscultation bilaterally Cardio: Rate: regular rate Rhythm: regular rhythm GI: Inspection: non-distended GI Palp: Yes Soft to palpation Skin: General skin exam: normal color Neuro: Speech: normal speech Extrem: General: normal to inspection Psych: Mental Status: mental status grossly normal Assessment and Plan Assessment and plan (1) Colon polyp: Code(s): K63.5 - Polyp of colon Status: Acute Assessment and Plan: colonoscopy
[2024-12-03 08:24] VITALS: BP 111/68; PULSE 81; RESP 15; O2SAT 97
--- NOTE | 2024-12-03 08:24 | P.PNAN_ITS ---
Anes - Eval Pre Procedure Procedure: Operation Date: 12/03/24 08:30 Proposed Procedures p Screening Colonoscopy - Sammy Ward MD Date/Time: 12/03/24 08:24 Pre Op Diagnosis: Screening Patient Data Age: 64 Gender: F Height: 1.55 m Weight: 84.6 kg Last Vital Signs Temp 36.2 C L 12/03/24 07:08 Pulse 118 H 12/03/24 07:08 Resp 18 12/03/24 07:08 BP 147/87 H 12/03/24 07:08 Pulse Ox 97 12/03/24 07:08 O2 Del Method Room Air 12/03/24 07:08 Allergies Allergy/AdvReac Type Severity Reaction Status Date / Time povidone Allergy Mild ITCHING Verified 12/03/24 07:07 triamcinolone (From Kenalog) AdvReac Mild high blood Verified 12/03/24 07:07 pressure Home Medications Medication Instructions Recorded Confirmed Type cholecalciferol (vitamin D3) 25 1,000 unit PO DAILY 07/05/19 12/03/24 History mcg/drop (1,000 unit/drop) oral drops aspirin 81 mg tablet,delayed 81 mg PO DAILY 08/31/23 12/03/24 History release (Adult Aspirin Regimen) amlodipine 5 mg tablet 5 mg PO DAILY #90 tabs 06/17/24 12/03/24 Rx metoprolol succinate 25 mg 25 mg PO DAILY #90 tabs 06/17/24 12/03/24 Rx tablet,extended release 24 hr pantoprazole 40 mg tablet,delayed 40 mg PO QAM #30 tabs 10/08/24 12/03/24 Rx release Patient hx anesthesia problems: none Family hx anesthesia problems: none Results Review: All pre-operative results and documents have been reviewed as part of the pre- operative evaluation. [facility] Past Medical History Medical History Colon polyp Broken wrist (~02/16/24) Osteoporosis Osteoarthritis of right knee Hypertension Steroid injections previously given in the knee caused pt to have a spike in blood pressure 170/102 Surgical History Surgical History H/O knee surgery LEFT Patella fracture ORIF in 2004; hardware removal 2005 Hx of tubal ligation History of oophorectomy Left Family History Family History Father Hypertension Heart disease Mother Liver cancer Hypertension Cerebrovascular accident Heart disease Sibling Lung cancer Diabetes mellitus Hypertension Social History Social History Smoking status: Former smoker Additional smoking assessment comments: smoke 1/2 pack aday for 4 years Alcohol intake: current Drinks per week: 1 Alcohol use details: occasional Substance use: never Substance use type: does not use Do You Feel Safe in your Home?: Yes Lack of Transportation: No Lack of Food: Never True Current Housing: I Have Housing Concerned About Future Housing: No Difficulty Paying Gas/Electric Bills: No Difficulty Paying for Meds: No Currently Unemployed: No Difficulty w/ Childcare or Family Care: No Living arrangements: with family Gender identity (if verbalized by the patient): Female Spiritual care concerns: No Agree to blood products: Yes Exam Day of Procedure 12/03/24 08:24 Patient weight: obese Heart: regular rate and rhythm Lungs: clear to auscultation Airway: Mallampati scale class II Neurological: alert and oriented
--- NOTE | 2024-12-03 08:26 | WPDANESEPPF ---
Anes - Initial Pre Proc Eval Procedure: Operation Date: 12/03/24 08:30 Proposed Procedures p Screening Colonoscopy - Sammy Ward MD Date/Time: 12/03/24 08:26 Surgeon: Sammy Ward MD Pre Op Diagnosis: Screening Patient Data Age: 64 Gender: F Height: 1.55 m Weight: 84.6 kg Last Vital Signs Temp 36.2 C L 12/03/24 07:08 Pulse 118 H 12/03/24 07:08 Resp 18 12/03/24 07:08 BP 147/87 H 12/03/24 07:08 Pulse Ox 97 12/03/24 07:08 O2 Del Method Room Air 12/03/24 07:08 Allergies Allergy/AdvReac Type Severity Reaction Status Date / Time povidone Allergy Mild ITCHING Verified 12/03/24 07:07 triamcinolone (From Kenalog) AdvReac Mild high blood Verified 12/03/24 07:07 pressure Home Medications Medication Instructions Recorded Confirmed Type cholecalciferol (vitamin D3) 25 1,000 unit PO DAILY 07/05/19 12/03/24 History mcg/drop (1,000 unit/drop) oral drops aspirin 81 mg tablet,delayed 81 mg PO DAILY 08/31/23 12/03/24 History release (Adult Aspirin Regimen) amlodipine 5 mg tablet 5 mg PO DAILY #90 tabs 06/17/24 12/03/24 Rx metoprolol succinate 25 mg 25 mg PO DAILY #90 tabs 06/17/24 12/03/24 Rx tablet,extended release 24 hr pantoprazole 40 mg tablet,delayed 40 mg PO QAM #30 tabs 10/08/24 12/03/24 Rx release Patient hx anesthesia problems: none Family hx anesthesia problems: none Results Review: All pre-operative results and documents have been reviewed as part of the pre-operative evaluation. [facility] Past Medical History Medical History Colon polyp Broken wrist (~02/16/24) Osteoporosis Osteoarthritis of right knee Hypertension Steroid injections previously given in the knee caused pt to have a spike in blood pressure 170/102 Surgical History Surgical History H/O knee surgery LEFT Patella fracture ORIF in 2004; hardware removal 2005 Hx of tubal ligation History of oophorectomy Left Family History Family History Father Hypertension Heart disease Mother Liver cancer Hypertension Cerebrovascular accident Heart disease Sibling Lung cancer Diabetes mellitus Hypertension Social History Social History Smoking status: Former smoker Additional smoking assessment comments: smoke 1/2 pack aday for 4 years Alcohol intake: current Drinks per week: 1 Alcohol use details: occasional Substance use: never Substance use type: does not use Do You Feel Safe in your Home?: Yes Lack of Transportation: No Lack of Food: Never True Current Housing: I Have Housing Concerned About Future Housing: No Difficulty Paying Gas/Electric Bills: No Difficulty Paying for Meds: No Currently Unemployed: No Difficulty w/ Childcare or Family Care: No Living arrangements: with family Gender identity (if verbalized by the patient): Female Spiritual care concerns: No Agree to blood products: Yes Anes - Eval Final PreProcedure Day of Procedure 12/03/24 08:26 Patient weight: obese Heart: regular rate and rhythm Lungs: clear to auscultation Airway: Mallampati scale class II Neurological: alert and oriented Last oral intake: >/= 8 hours ASA classification: II Emergent: no Anesthetic plan: proceed Anesthesia type and monitoring: general GIVS and standard monitoring Results Review: All pre-operative results and documents have been reviewed as part of the pre-operative evaluation. Informed Consent: The patient's anesthetic plan and its attendant risks and benefits were discussed with the patient/family/POA. Questions were solicited and answers provided to the satisfaction of the patient/family/POA.
[2024-12-03 08:34] VITALS: BP 113/72; PULSE 85; RESP 27; O2SAT 97
[2024-12-03 08:44] VITALS: BP 136/89; PULSE 81; RESP 25; O2SAT 100
== END 2024-12-03 08:52 | disposition home or self-care (01) ==
PROVIDERS: PCP Family Medicine; Referring Provider Obstetrics & Gynecology Gynecology; Visit Provider Internal Medicine Gastroenterology
PROC: 0DJD8ZZ Inspection of Lower Intestinal Tract, Via Natural or Artificial Opening Endoscopic (ICD-10-PCS; CPT 45378; principal; 2024-12-03 08:30)
DX: Z12.11 Encounter for screening for malignant neoplasm of colon (principal); K57.30 Diverticulosis of large intestine without perforation or abscess without bleeding; K64.8 Other hemorrhoids; Z86.0100 Personal history of colon polyps, unspecified; Z87.891 Personal history of nicotine dependence; E66.9 Obesity, unspecified; Z68.35 Body mass index [BMI] 35.0-35.9, adult
CPT/HCPCS: 45378; J2003; J2704; J7120

== ENCOUNTER 2025-05-02 07:23 | Outpatient (CLI) | payer OTHER, SELFPAY ==
--- NOTE | ~2025-05-02 | MM_ITS ---
EXAMINATION: MM screening aby BI w silvia HISTORY: Screening TECHNIQUE: Craniocaudal and mediolateral oblique 3-D tomosynthesis images were obtained and synthetic 2-D images were generated. CAD analysis was submitted and interpreted. COMPARISON: 12/15/2022 BREAST PARENCHYMAL COMPOSITION: There are scattered areas of fibroglandular density. FINDINGS: There is no evidence of suspicious mass, calcification, or architectural distortion to suggest malignancy. There has been no suspicious interval change. IMPRESSION: 1. No mammographic evidence of malignancy. Recommend routine screening mammography in one year. BI-RADS Category 2: Benign finding(s) Reviewed, dictated and finalized at location Q. IMPRESSION: 1. No mammographic evidence of malignancy. Recommend routine screening mammogra phy in one year. BI-RADS Category 2: Benign finding(s)
== END 2025-05-02 07:24 | disposition home or self-care (01) ==
PROVIDERS: PCP Family Medicine; Visit Provider Obstetrics & Gynecology Gynecology
DX: Z12.31 Encounter for screening mammogram for malignant neoplasm of breast (principal)
CPT/HCPCS: 77063; 77067